=== PATIENT | male | born 1960 | race Caucasian/White ===

== ENCOUNTER 2021-08-07 09:12 | Inpatient (IN) | payer OTHER, MEDICAID ==
[2021-08-07] MEDS ORDERED: Ondansetron PF 4 MG/2 ML Vial IVP PRN (11:27)
[2021-08-07] MEDS ORDERED: Ondansetron ODT 4 MG TAB PO PRN (11:27)
[2021-08-07] MEDS ORDERED: Acetaminophen 650 MG Suppository PR PRN (11:27)
[2021-08-07] MEDS ORDERED: hydrALAZINE 20 MG/ML VIAL SLOW IVP PRN (11:29)
[2021-08-07 13:17] LABS: Hep B Surf Ag Non-Reactive S/CO (NonReactive)
[2021-08-07 13:34] LABS: HBSAg Index 0.21 S/CO (0-0.99)
[2021-08-07] MEDS: Carvedilol 3.125 MG TAB PO SCH (21:18)
[2021-08-07] MEDS: Calcium Carbonate 500 MG ChewTAB PO SCH (21:18)
[2021-08-08 05:34] LABS: Anion Gap 19 mmol/L (10-20); BUN (Urea Nitrogen) 106 mg/dL (8.4-25.7); Calc. Creatinine Clearance 13 mL/min (70-130); Calcium 6.4 mg/dL (7.8-10.44); Carbon Dioxide 14 mmol/L (23-31); Chloride 113 mmol/L (98-107); Glucose 75 mg/dL (80-115); Potassium 5.3 mmol/L (3.5-5.1); Sodium 141 mmol/L (136-145)
[2021-08-08 06:10] LABS: #Eosinphils 0.1 10x3/uL (0.0-0.5); #Monocytes 0.3 10x3/uL (0.0-1.1); %Basophils 0.3 % (0.0-2.0); %Eosinophils 4.4 % (0.0-6.0); %Lymphocytes 24.1 % (18.0-47.0); %Monocytes 8.2 % (0.0-10.0); %Neutrophils 62.1 % (40.0-75.0); Mean Corpuscular HGB CONC 30.6 g/dL (32.0-36.0); Mean Corpuscular Hemoglobin 27.2 pg (27.0-33.0); Mean Corpuscular Volume 89.1 fl (81.2-95.1); Mean Platelet Volume 13.8 fl (7.4-10.4); Platelet Count 60 10x3/uL (150-450); RBC Distribution Width 14.2 % (11.5-14.5); Red Blood Cell (RBC) Count 2.57 10x6/uL (4.32-5.72); White Blood Cell (WBC) Count 3.2 10x3/uL (3.5-10.5)
[2021-08-08] MEDS ORDERED: Iron Sucrose Complex 200 MG in Sodium Chloride 0.9% 100 ML IVPB SCH (06:15)
[2021-08-08] MEDS ORDERED: Iron, Sodium Ferric Gluconate 250 MG, Admixture Fee 1 EACH in Sodium Chloride 0.9% 250 ... IVPB SCH (07:00)
[2021-08-08] MEDS ORDERED: EPOETIN ALFA-EPBX (ESRD) 10,000 UNIT/ML VIAL SC SCH (09:00)
[2021-08-08] MEDS ORDERED: Ergocalciferol 1.25 MG(50,000 UNITS) CAP PO SCH (09:00)
[2021-08-08] MEDS: Atorvastatin Calcium 20 MG TAB PO SCH (11:16)
[2021-08-08] MEDS: Calcium Carbonate 500 MG ChewTAB PO SCH ×2 (11:16→20:37)
[2021-08-08 13:25] LABS: HBSAB Concentration Less than 8.00 mIU/mL; Hep B Surf AB Non-Reactive (NonReactive)
[2021-08-08 16:46] VITALS: BMI 41.4
[2021-08-08] MEDS: Acetaminophen 325 MG TAB PO PRN (20:56)
[2021-08-09 06:47] LABS: Anion Gap 17 mmol/L (10-20); BUN (Urea Nitrogen) 48 mg/dL (8.4-25.7); Calc. Creatinine Clearance 22 mL/min (70-130); Calcium 8.3 mg/dL (7.8-10.44); Carbon Dioxide 22 mmol/L (23-31); Chloride 104 mmol/L (98-107); Glucose 85 mg/dL (80-115); Potassium 4.1 mmol/L (3.5-5.1); Sodium 139 mmol/L (136-145)
[2021-08-09 07:06] LABS: #Eosinphils 0.1 10x3/uL (0.0-0.5); #Monocytes 0.3 10x3/uL (0.0-1.1); #Neutrophils 2.5 10x3/uL (1.5-8.4); %Basophils 0.5 % (0.0-2.0); %Eosinophils 3.7 % (0.0-6.0); %Lymphocytes 19.9 % (18.0-47.0); %Monocytes 8.4 % (0.0-10.0); %Neutrophils 65.9 % (40.0-75.0); Hemoglobin 8.2 g/dL (13.5-17.5); Mean Corpuscular HGB CONC 31.8 g/dL (32.0-36.0); Mean Corpuscular Hemoglobin 27.2 pg (27.0-33.0); Mean Corpuscular Volume 85.4 fl (81.2-95.1); Mean Platelet Volume 13.5 fl (7.4-10.4); Platelet Count 88 10x3/uL (150-450); RBC Distribution Width 13.7 % (11.5-14.5); Red Blood Cell (RBC) Count 3.02 10x6/uL (4.32-5.72); White Blood Cell (WBC) Count 3.8 10x3/uL (3.5-10.5)
[2021-08-09] MEDS: Calcium Carbonate 500 MG ChewTAB PO SCH ×2 (08:04→21:06)
[2021-08-09] MEDS: Atorvastatin Calcium 20 MG TAB PO SCH (08:04)
[2021-08-09] MEDS: Lisinopril 10 MG TAB PO SCH (09:36)
[2021-08-09] MEDS: Carvedilol 3.125 MG TAB PO SCH ×2 (09:36→21:06)
[2021-08-09] MEDS: Torsemide 100 MG TAB PO SCH (17:59)
[2021-08-09] MEDS: Acetaminophen 325 MG TAB PO PRN (21:06)
[2021-08-10 05:05] LABS: Anion Gap 16 mmol/L (10-20); BUN (Urea Nitrogen) 28 mg/dL (8.4-25.7); Calc. Creatinine Clearance 31 mL/min (70-130); Calcium 8.2 mg/dL (7.8-10.44); Carbon Dioxide 25 mmol/L (23-31); Chloride 100 mmol/L (98-107); Glucose 124 mg/dL (80-115); Potassium 4.2 mmol/L (3.5-5.1); Sodium 137 mmol/L (136-145)
[2021-08-10 05:20] LABS: #Eosinphils 0.2 10x3/uL (0.0-0.5); #Monocytes 0.6 10x3/uL (0.0-1.1); #Neutrophils 2.9 10x3/uL (1.5-8.4); %Basophils 0.4 % (0.0-2.0); %Eosinophils 3.7 % (0.0-6.0); %Lymphocytes 22.6 % (18.0-47.0); %Neutrophils 59.3 % (40.0-75.0); Hemoglobin 8.1 g/dL (13.5-17.5); Mean Corpuscular HGB CONC 31.3 g/dL (32.0-36.0); Mean Corpuscular Hemoglobin 26.8 pg (27.0-33.0); Mean Corpuscular Volume 85.8 fl (81.2-95.1); Mean Platelet Volume 12.6 fl (7.4-10.4); Platelet Count 103 10x3/uL (150-450); RBC Distribution Width 13.9 % (11.5-14.5); Red Blood Cell (RBC) Count 3.02 10x6/uL (4.32-5.72); White Blood Cell (WBC) Count 4.9 10x3/uL (3.5-10.5)
[2021-08-10] MEDS: Calcium Carbonate 500 MG ChewTAB PO SCH (08:51)
[2021-08-10] MEDS: Atorvastatin Calcium 20 MG TAB PO SCH (08:51)
[2021-08-10] MEDS: Carvedilol 3.125 MG TAB PO SCH (08:51)
[2021-08-10] MEDS: Lisinopril 10 MG TAB PO SCH (08:51)
[2021-08-10] MEDS: Torsemide 100 MG TAB PO SCH (10:20)
[2021-08-10 12:29] VITALS: TEMP 98.8
[2021-08-10 16:48] VITALS: BP 130/80
== END 2021-08-10 19:00 | disposition home or self-care (01) | DRG 640 ==
LOC: CSHERS 09:12 → CSHTELE 11:56 → OBSVTOIN 08-09 10:49
PROVIDERS: ADMIT Internal Medicine; ATTEND Hospitalist
PROC: 8E0ZXY6 Isolation (ICD-10-PCS; principal; 2021-08-09)
PROC: 5A1D70Z Performance of Urinary Filtration, Intermittent, Less than 6 Hours Per Day (ICD-10-PCS; 2021-08-09)
DX: E87.70 Fluid overload, unspecified (principal); N18.6 End stage renal disease; U07.1 COVID-19; I50.32 Chronic diastolic (congestive) heart failure; N25.81 Secondary hyperparathyroidism of renal origin; I13.2 Hypertensive heart and chronic kidney disease with heart failure and with stage 5 chronic kidney disease, or end stage renal disease; E78.5 Hyperlipidemia, unspecified; D69.6 Thrombocytopenia, unspecified; E11.21 Type 2 diabetes mellitus with diabetic nephropathy; D63.1 Anemia in chronic kidney disease; E55.9 Vitamin D deficiency, unspecified; E11.22 Type 2 diabetes mellitus with diabetic chronic kidney disease; F41.9 Anxiety disorder, unspecified; Z99.2 Dependence on renal dialysis; Z79.899 Other long term (current) drug therapy
CPT/HCPCS: 36415; 36416; 80048; 85025; 86706; 87340; 90935; 94760; 96372; 96374; 96375; G0257; G0378; J0360; J2916; J7050; Q5105